=== PATIENT | female | born 1965 | race African-American/Black ===

== ENCOUNTER 2016-08-08 15:32 | Day surgery (SDC) | payer BC ==
[~2016-08-08] VITALS: Ht 162.6 cm; Wt 84.6 kg
[~2016-08-08 15:32] MED LIST: CITALOPRAM HBR10 MG PO; HYDROCHLOROTHIA25 MG PO
[2016-08-08] MEDS ORDERED: ATORVASTATIN CA10 MG PO (15:57)
[2016-08-08 16:33] LABS: HEMATOCRIT 40.2 % (36.0-46.0); MCH 28.9 PG (29.0-34.0); MCHC 34.3 G/DL (30.0-36.0); MCV 84.3 FL (83-99); MEAN PLAT.VOLUME 9.3 uM^3 (9.5-12.4); PLATELET COUNT 351 K/uL (156-360); RBC DIS.WIDTH-CV 12.2 % (11.8-14.6); RBC DIS.WIDTH-SD 37.1 % (39-53); RED BLOOD COUNT 4.77 M/uL (3.80-5.20); WHITE BLOOD COUNT 5.2 K/uL (4.1-10.2)
[2016-08-08 16:42] LABS: CHLORIDE 103 mEq/L (99-109); POTASSIUM 2.9 mEq/L (3.7-5.4); SODIUM 139 mEq/L (136-147)
[2016-08-08 16:44] LABS: GLUCOSE 100 mg/dL (70-99)
[2016-08-08 16:45] LABS: ANION GAP 13 MEQ/L (2-14)
[2016-08-08 16:46] LABS: TOTAL BILIRUBIN 0.5 mg/dL (0.0-1.0)
[2016-08-08 16:47] LABS: ALKALINE PHOSPHATASE 54 IU/L (3-129)
[2016-08-08 16:48] LABS: GFR ESTIMATE (CALCULATED) > 59 mL/min/
[2016-08-08 16:49] LABS: UREA NITROGEN (BUN) 11 mg/dL (9-23)
[2016-08-08 16:51] LABS: LIPASE 33 U/L (1.0-51.0)
[2016-08-08 16:57] LABS: QUANTITATIVE HCG < 4.0 MIU/ML
[2016-08-08 18:14] LABS: ADD MIUA? YES; BILIRUBIN NEGATIVE; BLOOD NEGATIVE; COLOR YELLOW ((YELLOW)); GLUCOSE (STRIP) NEGATIVE; KETONES 5; LEUKOCYTES MODERATE; NITRITE NEGATIVE; PROTEIN (STRIP) 30; SPECIFIC GRAVITY 1.015 (1.000-1.030)
[2016-08-08 19:11] LABS: RED BLOOD CELLS 0-5 /HPF (0-5)
[2016-08-08 19:12] LABS: BACTERIA 2+ /HPF; EPITHELIAL CELLS 4+ /HPF; MUCUS 2+ /LPF; UCUL ADDED? YES
[2016-08-08] MEDS ORDERED: LYRICA50 MG PO (20:05)
[2016-08-08] MEDS ORDERED: VITAMIN D2000 UNI1 PO (20:07)
[2016-08-08] MEDS ORDERED: ACETAMINOPHN-T1 EACH PO (20:07)
[2016-08-08] MEDS ORDERED: IBUPROFEN400 MG PO (22:43)
[2016-08-08 23:57] VITALS: BP 138/67
[2016-08-09 04:03] VITALS: BP 140/80
[2016-08-09 07:25] VITALS: BP 142/78
== END 2016-08-09 07:58 | disposition home or self-care (01) ==
LOC: EME 15:32 → SDC 21:11 → 2SOUTH 22:48 → 2EAST 22:48
PROVIDERS: Physician Assistant Medical
DX: N83.53 Torsion of ovary, ovarian pedicle and fallopian tube (principal); Z90.711 Acquired absence of uterus with remaining cervical stump; Z90.721 Acquired absence of ovaries, unilateral; E87.6 Hypokalemia; I10 Essential (primary) hypertension; M47.16 Other spondylosis with myelopathy, lumbar region; M79.7 Fibromyalgia; F41.9 Anxiety disorder, unspecified; Z83.3 Family history of diabetes mellitus
CPT/HCPCS: 74176; 76856; 80053; 81003; 83690; 84702; 85027; 87086; 88305; 93005; 93975; 99281; 99285; G0378; J0360; J1885; J2250; J2270; J2405; J3010; J3480; J7030; J7120